=== PATIENT | female | born 1975 | race Caucasian/White ===

== ENCOUNTER → 2017-05-08 | Outpatient (CLI) | payer OTHER ==
[~2017-05-08] MED LIST: AUGMENTIN PO; CIPRO PO; CYPROHEPTADINE H4 MG; KEFLEX; PROTOPIC; PYRIDIUM PO; ULTRAVATE50 GM
--- NOTE | ~2017-05-08 | CR63 ---
[facility] A Service of [facility] & [facility] RADIOLOGY TEXT RESULTS PATIENT: ALON MEIER LOCATION: [facility] : 79 UNIT #: [id number] AGE: [address]: KRISTIN ESPAÑA APRN SEX: F ORDER DR: [id number] [facility] [address] [place], [place] [address] [id number] O MR#: [id number] #: [id number] NAME: ALON MEIER : 1975 SEX: F STUDY DATE/TIME: 05/08/2017 19:29 UNIT: [facility] ROOM: STUDY DESCRIPTION: CR Chest 2 View Attending Physician: Kristin España Aprn Referring Physician: Kristin España Aprn Ordering Physician: Physician Non-Staff Primary Care Physician: Kristin España Aprn MEDICAL IMAGING REPORT This report is preliminary unless electronic signature is present EXAM Chest PA and lateral, 05/08/2017 HISTORY Chest pain under right breast extending to the right shoulder blade for 3 days. No known injury. Cough. FINDINGS PA and lateral examination of the chest upright shows a good expansion of the parenchyma with a normal distribution of the pulmonary vascularity. There is no indication of congestion, effusion, infiltrate, tumor, or nodular density. The pleural reflections and diaphragmatic contours are normal. The cardiac silhouette and mediastinal anatomy is within normal limits. IMPRESSION Normal chest. Dictated by... Jose J Mensah M.D. THIS IS AN ELECTRONICALLY VERIFIED REPORT Jose J Mensah M.D. at 05/10/2017 6:24 AM Kendrick TD: 05/09/2017 11:55 JOB #: [id number] MEDICAL IMAGING REPORT Page 1 of 1 COPY
== END | disposition home or self-care (01) ==
LOC: CRAD 19:05
DX: R07.9 Chest pain, unspecified (principal); R05 Cough
CPT/HCPCS: 71020